=== PATIENT | male | born 1975 | race Two or more races ===

== ENCOUNTER → 2024-02-03 | Outpatient (CLI) | payer MEDICARE, MEDICAID, SELFPAY ==
--- NOTE | 2024-02-03 07:30 | XR_ITS ---
Examination: MRI lumbar spine without contrast Date and time of exam: February 03, 2024 at 0756 hours INDICATIONS: Low back pain beginning 2019 radiating to the knees Technique: Multiple MRI axial and sagittal sections lumbar spine. Sagittal T2-weighted images, TR 3500, TE 118 T1 weighted transverse sections, TR 688 T8.5, T2-weighted sagittal sections T1 weighted sagittal sections TR 621, TE 30 T2 axial sections, TR 4, 190, TE 84. Findings: Adequate alignment lumbar vertebral bodies on the lateral view Multiple Schmorl's nodes Diffuse lumbar disc desiccation Mild disc narrowing L4-L5 moderate disc narrowing L1-L2 L5-S1 4 mm central lumbar disc bulge L4-L5 10 mm central lumbar disc bulge indenting the ventral margin thecal sac L3-L4 4 mm central lumbar disc bulge L2-L3 no disc protrusion L1-L2 no disc protrusion IMPRESSION: L5-S1 L3-L4 4 mm central lumbar disc bulges L4-L5 significant spinal stenosis, 10 mm central lumbar disc bulge indenting the ventral margin thecal sac
== END | disposition home or self-care (01) ==
PROVIDERS: Referring Provider Orthopaedic Surgery Adult Reconstructive Orthopaedic Surgery; Visit Provider Orthopaedic Surgery Adult Reconstructive Orthopaedic Surgery
DX: M51.379 Other intervertebral disc degeneration, lumbosacral region without mention of lumbar back pain or lower extremity pain (principal); M51.369 Other intervertebral disc degeneration, lumbar region without mention of lumbar back pain or lower extremity pain; M48.07 Spinal stenosis, lumbosacral region
CPT/HCPCS: 72148